=== PATIENT | male | born 1965 | race Caucasian/White ===

== ENCOUNTER 2018-08-08 07:33 | Day surgery (SDC) | payer OTHER ==
[2018-08-08] MEDS ORDERED: DIPHENHYDRAMINE HCL 50 MG/ML VIAL ONE (07:51)
[2018-08-08] MEDS ORDERED: ONDANSETRON HCL INJ/PF 4 MG/2 ML SDV ONE (07:51)
[2018-08-08] MEDS ORDERED: FLUMAZENIL INJ 0.5 MG/5 ML VIAL ONE (07:52)
[2018-08-08] MEDS ORDERED: EPINEPHRINE INJ 1 MG/10 ML DISP.SYRIN ONE (07:52)
[2018-08-08] MEDS ORDERED: NALOXONE HCL INJ/PF 0.4 MG/1 ML SDV ONE (07:52)
[2018-08-08] MEDS ORDERED: GLUCAGON,HUMAN RECOMB 1 MG INJ ONE (07:52)
[2018-08-08] MEDS: MIDAZOLAM 2 MG/2 ML INJ ONE ×4 (08:14→08:24)
[2018-08-08] MEDS: FENTANYL CITRATE INJ/PF 100 MCG/2 ML AMPUL ONE ×2 (08:16→08:20)
--- NOTE | 2018-08-08 09:01 | Operative Report ---
Operative Report DATE OF SURGERY: 08/08/18 Operative Report: The risks, benefits and alternatives of the procedure including the risks of bleeding, perforation requiring surgery are explained to the patient in detail and informed consent is obtained. Patient is placed in the left, lateral decubital position. A rectal examination is done which this did not reveal any masses, tears or fissures. An Olympus videoscope is inserted into the patient' s rectum. The scope was then carefully advanced all the way to the cecum. Cecum was identified by the usual anatomical landmarks including the ileocecal valve as well as the appendiceal office. Photodocumentation is obtained. The scope was then sequentially pulled back via the various segments of the colon including the ascending colon, hepatic flexure, transverse colon, splenic flexure, descending colon and finding to the rectosigmoid portions of the colon. Retroflexion maneuvers performed. PREOPERATIVE DIAGNOSIS: Colorectal cancer screening POSTOPERATIVE DIAGNOSIS: Right side colon inflammation status post biopsy. Sigmoid colon polyp removed via snare polypectomy. Diverticulosis OPERATION: Colonoscopy with snare polypectomy. Colonoscopy with biopsy SURGEON: MAXI DAS ANESTHESIA: Moderate Sedation - 6 mg of Versed, 100 mcg of fentanyl. Conscious sedation monitoring time 30 minutes. TISSUE REMOVED OR ALTERED: As noted above. COMPLICATIONS: None. ESTIMATED BLOOD LOSS: None. INTRAOPERATIVE FINDINGS: As noted above. PROCEDURE: Patient tolerated the procedure well. No immediate postprocedure complications are noted. Patient discharged in good condition. Discharge date 08/08/2018. Discharge diet: Regular. Discharge activity: Regular. 2-3 week follow-up to discuss findings. Patient is instructed call the office or proceed to the emergency room should there be any further problems or questions. Wait on the pathology. 3-5 year surveillance colonoscopy.
[2018-08-08 09:33] VITALS: BP 115/64
== END 2018-08-08 09:35 | disposition home or self-care (01) ==
LOC: END 07:33
PROVIDERS: ATTEND Internal Medicine Gastroenterology
DX: Z12.11 Encounter for screening for malignant neoplasm of colon (principal); K57.30 Diverticulosis of large intestine without perforation or abscess without bleeding; K52.9 Noninfective gastroenteritis and colitis, unspecified; D12.5 Benign neoplasm of sigmoid colon; I10 Essential (primary) hypertension; J45.909 Unspecified asthma, uncomplicated; E78.5 Hyperlipidemia, unspecified; G47.33 Obstructive sleep apnea (adult) (pediatric); Z87.891 Personal history of nicotine dependence; Z79.82 Long term (current) use of aspirin; Z79.51 Long term (current) use of inhaled steroids
CPT/HCPCS: 45380; 45385; 88305 ×2; J2250; J3010; J0171; J1200; J1610; J2310; J2405; J3490

== ENCOUNTER 2019-08-21 23:34 | Emergency (ER) | payer OTHER ==
[2019-08-22 02:29] LABS: ABSOLUTE BASOPHILS # (AUTO) 0.1 10^3/uL (0.0-0.2); ABSOLUTE EOSINOPHILS # (AUTO) 0.2 10^3/uL (0.0-0.6); ABSOLUTE LYMPHOCYTES (AUTO) 2.4 10^3/uL (0.5-4.7); ABSOLUTE MONOCYTES (AUTO) 0.8 10^3/uL (0.1-1.4); ABSOLUTE NEUT (AUTO) 6.3 10^3/uL (1.7-8.2); BASOPHILS % (AUTO) 0.9 % (0-2); EOSINOPHILS % (AUTO) 2.4 % (0-6); HEMATOCRIT 43.3 % (37.9-51.0); LYMPHOCYTES % (AUTO) 24.7 % (13-45); MEAN CORPUSCULAR HEMOGLOBIN 29.4 pg (27.0-33.4); MEAN CORPUSCULAR HGB CONC 34.7 g/dL (32.0-36.0); MEAN CORPUSCULAR VOLUME 85 fl (80-97); PLATELET COUNT 257 10^3/uL (150-450); RED CELL DISTRIBUTION WIDTH 13.8 % (11.5-14.0); TOTAL CELLS COUNTED % (AUTO) 100 %; WHITE BLOOD COUNT 9.8 10^3/uL (4.0-10.5)
[2019-08-22 02:34] LABS: ALBUMIN 4.5 g/dL (3.5-5.0); ALKALINE PHOSPHATASE 76 U/L (38-126); ANION GAP 11 (5-19); ASPARTATE AMINO TRANSFERASE 28 U/L (17-59); BILIRUBIN,DIRECT 0.2 mg/dL (0.0-0.4); BILIRUBIN,TOTAL 0.5 mg/dL (0.2-1.3); BLOOD UREA NITROGEN 13 mg/dL (7-20); CALCIUM 9.6 mg/dL (8.4-10.2); CARBON DIOXIDE 27 mmol/L (22-30); CHLORIDE 100 mmol/L (98-107); GLUCOSE 113 mg/dL (75-110); POTASSIUM 3.6 mmol/L (3.6-5.0); TOTAL PROTEIN 7.4 g/dL (6.3-8.2)
[2019-08-22] MEDS ORDERED: CEFTRIAXONE 1 GM/D5W RTU 50 ML IV ONE ×2 (04:19→04:30)
--- NOTE | 2019-08-22 04:25 | ER Document Report ---
ED Extremity Problem, Lower - General Chief Complaint: Leg Pain Stated Complaint: RIGHT LEG PAIN Time Seen by Provider: 08/22/19 04:04 Primary Care Provider: ONIEL MARTINEZ DO [Primary Care Provider] - Follow up as needed Information source: Patient, Relative Notes: Patient complains of right medial ankle painful rash spreading for the past 3 days. Denies trauma. He has a remote history of infection of his left lower extremity. He takes low-dose aspirin. He just restarted his high blood pressure pills. No chest pain or shortness of breath. No other complaints. No pruritus. TRAVEL OUTSIDE OF THE [place] IN LAST 30 DAYS: No - Related Data Allergies/Adverse Reactions: No Known Allergies Allergy (Verified 08/08/18 07:29) Past Medical History - Social History Smoking Status: Former Smoker Frequency of alcohol use: Social Family History: Reviewed & Not Pertinent Patient has suicidal ideation: No Patient has homicidal ideation: No - Past Medical History Cardiac Medical History: Reports: Hx Hypercholesterolemia, Hx Hypertension Denies: Hx Atrial Fibrillation, Hx Congestive Heart Failure, Hx Coronary Ar nithin Disease, Hx Heart Attack, Hx Peripheral Vascular Disease, Hx Pulmonary Embolism, Hx Heart Murmur Pulmonary Medical History: Reports: Hx Asthma, Hx Pneumonia - 1987 or 1988 Denies: Hx Bronchitis, Hx COPD, Hx Respiratory Failure, Hx Sleep Apnea, Hx Tuberculosis Neurological Medical History: Denies: Hx Cerebrovascular Accident, Hx Seizures Malignancy Medical History: Denies Hx Lung Cancer Musculoskeletal Medical History: Reports Hx Arthritis, Denies Hx Fibromyalgia, Denies Hx Muscular Dystrophy Traumatic Medical History: Denies: Hx Fractures Past Surgical History: Reports: Hx Orthopedic Surgery. Denies: Hx Appendectomy, Hx Bowel Surgery, Hx Cholecystectomy, Hx Coronary Artery Bypass Graft, Hx Gastric Bypass Surgery, Hx Herniorrhaphy, Hx Pacemaker, Hx Tonsillectomy - Immunizations Hx Diphtheria, Pertussis, Tetanus Vaccination: Yes Review of Systems - Review of Systems Constitutional: denies: Chills, Fever -: Yes All other systems reviewed and negative Physical Exam - Vital signs Vitals: Temp Pulse Resp BP Pulse Ox 99.6 F 92 17 152/74 H 95 08/21/19 23:46 08/21/19 23:46 08/21/19 23:46 08/21/19 23:46 08/21/19 23:46 Interpretation: Normal - General General appearance: Appears well, Alert - HEENT Head: Normocephalic, Atraumatic Eyes: Normal Pupils: PERRL - Respiratory Respiratory status: No respiratory distress Chest status: Nontender Breath sounds: Normal Chest palpation: Normal - Cardiovascular Rhythm: Regular Heart sounds: Normal auscultation Murmur: No - Abdominal Inspection: Normal Distension: No distension Bowel sounds: Normal Tenderness: Nontender Organomegaly: No organomegaly - Back Back: Normal, Nontender - Extremities General upper extremity: Normal inspection, Nontender, Normal color, Normal ROM, Normal temperature General lower extremity: Tender - Cellulitis of right ankle is tender., Normal ROM, Normal temperature. No: Eladio's sign - Neurological Neuro grossly intact: Yes Cognition: Normal Orientation: AAOx4 Matthews Coma Scale Eye Opening: Spontaneous Taj Coma Scale Verbal: Oriented Taj Coma Scale Motor: Obeys Commands Matthews Coma Scale Total: 15 Speech: Normal Motor strength normal: LUE, RUE, LLE, RLE Sensory: Normal - Psychological Associated symptoms: Normal affect, Normal mood - Skin Skin Temperature: Warm Skin Moisture: Dry Skin Color: Normal Notes: 6 x 2 cm area of blanchable erythema right medial ankle consistent with cellulitis. Course - Re-evaluation Re-evalutation: 08/22/19 04:24 Rocephin ordered for cellulitis of right ankle. 08/22/19 05:32 SPLINT ORDERED FOR CELLULITIS. PT WILL RETURN TOMORROW FOR RECHECK. - Vital Signs Vital signs: Temp Pulse Resp BP Pulse Ox 99.3 F 94 20 135/63 H 96 08/22/19 00:55 08/22/19 00:55 08/22/19 00:55 08/22/19 00:55 08/22/19 00:55 - Laboratory Result Diagrams: 08/22/19 01:26 08/22/19 01:26 Laboratory results interpreted by me: 08/22/19 01:26 Glucose 113 H - Diagnostic Test Radiology reviewed: Image reviewed Discharge - Discharge Clinical Impression: Cellulitis of right ankle Condition: Stable Disposition: HOME, SELF-CARE Instructions: Cellulitis ([facility]) Additional Instructions: Return at once if worse or new symptoms. Recheck in 24 hours. Follow-up with your doctor or return here tomorrow for recheck. Prescriptions: Sulfamethoxazole/Trimethoprim [Bactrim Ds Tablet] 2 tab PO BID #28 tablet Doxycycline Hyclate 100 mg PO BID #14 capsule Referrals: ONIEL MARTINEZ DO [Primary Care Provider] - Follow up as needed
[2019-08-22] MEDS ORDERED: CEFTRIAXONE INJ 250 MG VIAL IM ONE (04:30)
[2019-08-22] MEDS ORDERED: CEFTRIAXONE INJ 1000 MG VIAL IM ONE ×2 (04:31→05:30)
[2019-08-22] MEDS ORDERED: LIDOCAINE 1% INJ (10 MG/ML) 10 ML MDV INJ ONE (04:32)
--- NOTE | 2019-08-22 05:36 | RADIOLOGY REPORT (SQ) ---
EXAM DESCRIPTION: XR ANKLE 3 OR MORE VIEWS COMPLETED DATE/TME: 08/22/2019 04:18 CLINICAL HISTORY: 53 years, Male, CELLULITIS R ANKLE R/O OSTEO COMPARISON: None. NUMBER OF VIEWS: 3 TECHNIQUE: 3 views right ankle LIMITATIONS: None. FINDINGS: Osteopenia. No soft tissue gas. No bony destructive or expansile process. Negative for acute fracture or dislocation. Small calcaneal spurs. Mild soft tissue swelling. Well-corticated ossific density near the lateral malleolus could reflect old injury IMPRESSION: No acute osseous abnormality. copyright 2010 [employer]- All Rights Reserved
[2019-08-22 05:49] VITALS: BP 148/77
== END 2019-08-22 06:11 | disposition home or self-care (01) ==
LOC: ER 23:34
DX: L03.115 Cellulitis of right lower limb (principal); M79.604 Pain in right leg; R21 Rash and other nonspecific skin eruption; Z79.82 Long term (current) use of aspirin; Z79.899 Other long term (current) drug therapy; I10 Essential (primary) hypertension; Z87.891 Personal history of nicotine dependence
CPT/HCPCS: 99283; 96372; 36415; 85025; 80053; 73610; J0696